=== PATIENT | male | born 1985 | race Caucasian/White ===

== ENCOUNTER 2020-09-07 03:35 | Emergency (ER) | payer MEDICAID, SELFPAY ==
[2020-09-07 03:40] VITALS: BP 135/73; PULSE 87; RESP 18; TEMP 36.4; O2SAT 99
--- NOTE | 2020-09-07 03:45 | ED.GENADUL_ITS ---
Discharge Plan Disposition Patient Disposition: HOME Condition: Good Discharge Details Clinical Impression: Dental caries Primary Care Provider: None,None ED Provider: Mook Cifuentes Home Meds and New Rx's Prescriptions: New penicillin V potassium 500 mg tablet 500 mg PO QID 10 Days Qty: 40 RF: 0 Continued methadone 5 mg/5 mL Solution 70 mg PO DAILY RF: 0 Discharge Instructions Instructions: Dental Caries (ED) Additional Instructions: At this time you have a mild dental infection in your tooth. Please take the an tibiotic as directed. Please continue to take Tylenol and ibuprofen. You can take 1000 mg of Tylenol every 6 hours and 800 mg of ibuprofen every 6 hours. These are the maximum doses. Please use the dental sheet follow-up closely with a dentist. If you notice any worsening of your symptoms, or any new symptoms such as vomiting, diarrhea, fever, chills, shortness of breath, chest pain, numbness, weakness, or fainting , please return immediately to the emergency department for reevaluation. Please follow up with your primary care provider as soon as possible for reassessment and reevaluation. As always, it was a pleasure participating in your medical care today. Medical Decision Making Pleasant 35-year-old male presents for left upper dental pain. Patient states that for the last few days he has had mild pain in the left upper front tooth, yesterday he poked it with a needle and got a notable amount of pus out of the area just superior to the tooth. However this evening the pain still continues to be felt mild swelling in his face. He came to the ER for further evaluation. He denies any other pain aside for pain in the tooth. He denies any fever or chills. No other complaints at this time. No difficulty swallowing or controlling secretions. He has not followed up with a dentist yet. Exam demonstrates mild swelling in the left upper face, no fluctuance of periapical space over the notable dental carry in the left upper teeth. No evidence of airway compromise whatsoever or Jamie's angina. No evidence of abscess that can be drained. Patient declined dental block, he also declined tetanus shot. Will give penicillin, a prescription for home and 4 pills here, and a dental sheet for close dental follow-up. Recommend continued Tylenol and Motrin. Discussed red flags which to return. I have extensively reviewed the treatment plan and discharge instructions with the patient. I have addressed all patient concerns at this time. The patient was made aware of what symptoms to monitor for that would warrant a return to the emergency department. Discussed the plan with the patient, they demonstrate verbal understanding and agreement with our assessment and plan at this time. The documentation in this chart was dictated using [employer] dictation software. Please excuse any dictation errors. HPI General Date/Time Provider Initiated Documentation: 09/07/20 03:38 . HPI Narrative: Ple asant 35-year-old male presents for left upper dental pain. Patient states that for the last few days he has had mild pain in the left upper front tooth, yesterday he poked it with a needle and got a notable amount of pus out of the area just superior to the tooth. However this evening the pain still continues to be felt mild swelling in his face. He came to the ER for further evaluation. He denies any other pain aside for pain in the tooth. He denies any fever or chills. No other complaints at this time. No difficulty swallowing or controlling secretions. He has not followed up with a dentist yet. Related Data Home Medications Medication Instructions Recorded Confirmed methadone 70 mg PO DAILY 09/07/20 09/07/20 penicillin V potassium 500 mg PO QID 10 Days #40 tab 09/07/20 Previous Rx's Medication Instructions Recorded penicillin V potassium 500 mg PO QID 10 Days #40 tab 09/07/20 Allergies Allergy/AdvReac Type Severity Reaction Status Date / Time No Known Allergies Allergy Unverified 09/07/20 03:46 General Stated Complaint: DentalOral MARGARET: 4 Review of Systems All systems reviewed & are unremarkable except as noted in HPI and below [facility] Social History Smoking/Tobacco Use Status: Current every day Smoking risk assessment performed?: Yes Alcohol Intake: former Drug use: Daily Substance use type: marijuana Do you feel safe at home: Yes Do you feel safe in your relationship?: Yes Exam Narrative Exam Narrative: 1.Const: Well-nourished, Well-developed, appearing stated age 2.Eyes: PERRL, no conjunctival injection, and symmetrical lids. 3.ENT: Atraumatic external nose and ears. Moist MM. Neck: Symmetric, trachea midline, No thyromegaly. Notable dental caries throughout, specifically in the left upper frontal teeth. No fluctuance in the periapical space. There is evidence of a small previous needle insertion site where he inserted the needle himself. No active drainage. Minimal bloody oozing. No evidence of Ludewig's angina, significant facial swelling, airway compromise, or other abnormality 4.CVS: Normal rate and rhythm 5.RESP: Unlabored respiratory effort. Clear to auscultation bilaterally. No wheezes rales or rhonchi 6.GI: Soft, Nontender/Nondistended, No hepatosplenomegaly. No guarding or rebound. 7.MSK: Normocephalic/Atraumatic, Extremities w/o deformity or ttp No cyanosis or clubbing, Normal movement of all extremities 8.Skin: Warm, Dry. No rashes or lesions. 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 Sensation grossly intact, no focal neurologic deficits. 10.Psych: (AAO) x3. Appropriate mood and affect Course Vital Signs Vital signs: Vital Signs Temperature 36.4 C L 09/07/20 03:40 Pulse 87 09/07/20 03:40 Respiratory Rate 18 09/07/20 03:40 Blood Pressure 135/73 09/07/20 03:40 Pulse Oximetry 99 09/07/20 03:40 Temperature 36.4 C L 09/07/20 03:40 Temperature Source Skin 09/07/20 03:40 Pulse 87 09/07/20 03:40 Respiratory Rate 18 09/07/20 03:40 Blood Pressure 135/73 09/07/20 03:40 Blood Pressure Position Sitting 09/07/20 03:40 Pulse Oximetry 99 09/07/20 03:40 Oxygen Delivery Method Room Air 09/07/20 03:40 Oxygen Flow Rate 0 09/07/20 03:40 Pain Level 2 09/07/20 03:40
[2020-09-07] MEDS: Penicillin V POTASSIUM 500 MG TAB, 4 TABS/BTL PO (03:53)
== END 2020-09-07 03:55 | disposition home or self-care (01) ==
PROVIDERS: Emergency Provider Student in an Organized Health Care Education/Training Program
DX: R68.84 Jaw pain (principal); R22.0 Localized swelling, mass and lump, head; K04.7 Periapical abscess without sinus
CPT/HCPCS: 99283

== ENCOUNTER 2021-09-29 09:00 | Emergency (ER) | payer MEDICAID, SELFPAY ==
[2021-09-29] VITALS (13 sets, daily range): BP systolic 115–133; BP diastolic 81–89; PULSE 57–97; RESP 16; TEMP 37.1; O2SAT 97–100
--- NOTE | 2021-09-29 09:15 | DI.CT_ITS ---
Exam(s) CT ABDOMEN PELVIS W EXAM: CT ABDOMEN PELVIS W CLINICAL HISTORY: RLQ pain TECHNIQUE: Imaging Protocol: Axial computed tomography images with coronal and sagittal reformatted images were created and reviewed CONTRAST MATERIAL: Intravenous: Omnipaque 350 Contrast volume:100 mL Oral: No COMPARISON: No exams were available for comparison FINDINGS: ABDOMEN: Lung Bases: Normal where visualized. Liver: Normal density. No measurable mass. Portal, Superior Mesenteric, and Splenic Veins: Unremarkable. Gallbladder and Biliary Tract: No radiodense calculus or dilation. Pancreas: Normal density, no abnormal calcifications or inflammatory process. Spleen: Normal. Adrenals: No masses seen. Kidneys: Normal size, contour and axis. No radiodense stones or obstructive uropathy. No masses seen. Abdominal Aorta: Abdominal portion non-dilated. Bowel: No obstruction or bowel wall thickening. Appendix is unremarkable. Peritoneal Cavity: No ascites, collection or mesenteric inflammatory response. No free air. Lymph Nodes: Within normal limits. Bones: Within normal limits for the patient's age. Soft Tissues: Unremarkable. PELVIS: Bladder: Symmetric distention, no gross wall thickening. Reproductive Organs: Unremarkable as visualized. Lymph Nodes: Within normal limits. Bones: Within normal limits for the patient's age. IMPRESSION: 1. No acute abdominal or pelvic process. 2. Results of this exam have been verbally communicated with provider. RADIATION DOSE DELIVERED: 642.28mGy.cm Total DLP DATA REPOSITORY: All CT scans at this facility are submitted to the National Radiology Data Registry (NRDR) Dose Index Registry (DIR) with the [employer] (ACR). RADIATION OPTIMIZATION: All CT scans at this facility use at least one of these dose optimization te chniques: automated exposure control; mA and/or kV adjustment per patient size (includes targeted exa ms where dose is matched to clinical indication); or iterative reconstruction.
[2021-09-29 09:25] LABS: Bilirubin Negative (Negative); Blood Negative (Negative); Clarity Clear (Clear); Glucose Negative (Negative); Ketones Negative (Negative); Leukocyte Esterase Negative (Negative); Nitrite Negative (Negative); Specific Gravity >= 1.030 (1.005-1.025); Urobilinogen 0.2 EU/dL (Up TO 0.2); pH 6.5 (5-8)
--- NOTE | 2021-09-29 09:26 | W.ED.GENAD ---
Discharge Plan Disposition Patient Disposition: HOME Condition: Stable Discharge Details Clinical Impression: Abdominal pain Primary Care Provider: None,None ED Provider: Shanelle Del Valle Home Meds and New Rx's Prescriptions: No Action No Known Home Meds 0RF Discharge Instructions Instructions: Abdominal Pain (ED) Additional Instructions: Please contact your primary care physician to arrange follow-up. Care management will be helping to arrange primary care follow-up. Please follow-up with a therapist. Return to the ER immediately for any worsening or new concerning symptoms. Referrals: [facility] [Outside] Discharge Data Discharge Date/Time-TO BE ENTERED AT DEPARTURE: 09/29/21 15:26 Medical Decision Making -- Patient seen, examined, and discussed with SANDIE Del Valle. I agree with treatment plan as discussed/documented. Consider acute surgical process including acute appendicitis. Plan for CT and reassessment. RS Pt appears well, no current testicular discomfort reported ct abd/pelvis negative for acute abnormality per radiologist interpretation labs including urinalysis neg for acute abnormality referred for pcp follow-up care management involved to establish care pt calm and comfortable in appearance at time of dc home return precautions discussed and pt expressed understanding Medical Records Medical records reviewed: Yes I reviewed the patient's medical records. Lab Data Lab results reviewed: Yes I reviewed the patient's lab results. HPI General Date/Time Provider Initiated Documentation: 09/29/21 09:14. HPI Narrative: This 36-year-old male presents with report of abdominal pain. Pain is been present for 3 days. States that he had an increase gassiness and nausea with light-colored stools. He denies any fever or chills. He denies pain or shortness of breath. He denies known exacerbating or alleviating factors. He did recently discontinue opiate drug use. He also was on methadone for several weeks and discontinued use with methadone 2 weeks ago. He denies any fever or chills. He denies history of similar symptoms in the past. He denies any urinary complaints but does state occasionally repeat radiates into his urethra. He denies any skin discoloration or new rashes or lesions. Related Data Home Medications Medication Instructions Recorded Confirmed Unknown [No Known Home Meds] 09/29/21 09/29/21 Allergies Allergy/AdvReac Type Severity Reaction Status Date / Time No Known Allergies Allergy Unverified 09/29/21 09:14 General Stated Complaint: Abd Prob MARGARET: 3 Review of Systems All systems reviewed & are unremarkable except as noted in HPI and below PFSH All Active Problems (Updated 09/29/21 @ 11:13 by Steven Patel MD) Dental caries (Acute) Abdominal pain (Acute) Social History Smoking/Tobacco Use Status: Current every day Smoking risk assessment performed?: Yes Alcohol Intake: former Drug use: Daily Substance use type: marijuana Details: fentayl, heroin, cocaine-smoked. Do you feel safe at home: Yes Do you feel safe in your relationship?: Yes Exam Const General: comfortable and no acute distress HENMT Mouth: oral mucosae normal Eyes Sclera: sclerae normal Resp Effort & Inspection: normal respiratory effort Cardio Rate: regular rate GI Inspection: normal to inspection Palpation: tender Other: RLQ tenderness, no rebound or guarding Skin General skin exam: no rashes or lesions noted Neuro General: patient alert and patient oriented x3 Extrem General: normal to inspection Course Vital Signs Vital signs: Vital Signs Temperature 37.1 C 09/29/21 09:06 Pulse 97 H 09/29/21 09:06 Respiratory Rate 16 09/29/21 09:06 Blood Pressure 133/89 09/29/21 09:06 Pulse Oximetry 99 09/29/21 09:06 Temperature 37.1 C 09/29/21 09:06 Temperature Source Skin 09/29/21 09:06 Pulse 97 H 09/29/21 09:06 Respiratory Rate 16 09/29/21 09:06 Respiratory Effort 09/29/21 09:06 Blood Pressure 133/89 09/29/21 09:06 Blood Pressure Position Sitting 09/29/21 09:06 Pulse Oximetry 99 09/29/21 09:06 Oxygen Delivery Method Room Air 09/29/21 09:06 Oxygen Flow Rate 0 09/29/21 09:06 Pain Level 5 09/29/21 09:06
[2021-09-29 09:50] LABS: Abs Immature Grans 0.01 10^3/uL (0.0-0.06); Absolute Basophil Count 0.07 10^3/uL (0.0-0.2); Absolute Lymphocyte Count 2.75 10^3/uL (1.2-3.4); Absolute Monocyte Count 0.62 10^3/uL (0.1-0.8); Absolute Neutrophil Count 3.34 10^3/uL (1.2-6.7); Eosinophils % 1.5; HCT 50.7 % (40.0-50.0); HGB 16.4 g/dL (13.5-17.5); Immature Grans % 0.1; Lymphocytes % 39.9; MCH 26.7 pg (27.0-33.0); MCHC 32.3 % (32.0-36.0); MCV 82.6 fL (80-95); Neutrophils % 48.5; Nucleated RBC 0 %; Platelet Count 212 10^3/uL (130-400); RDW 13.6 % (11.8-14.1); RDW-SD 40.6 fL; WBC 6.89 10^3/uL (4.4-10.8)
[2021-09-29 09:52] LABS: RBC 6.14 10^6/uL (4.36-5.78)
[2021-09-29] MEDS: Omnipaque 350 MG/ML 100 ML BTL IJ (09:55)
[2021-09-29 10:04] LABS: ALT 20 U/L (16-63); AST 13 U/L (15-37); Albumin 4.1 g/dL (3.4-5.0); Alkaline Phosphatase 81 U/L (46-116); Anion Gap 4.9 mmol/L (3-11); BUN 14 mg/dL (7-18); Bilirubin, Total 0.4 mg/dL (0.2-1.0); CO2 30.1 mmol/L (21.0-32.0); CREATININE 0.9 mg/dL (0.70-1.30); Calcium 8.9 mg/dL (8.5-10.1); Chloride 105 mmol/L (98-107); Glucose 92 mg/dL (74-106); Lipase 123 U/L (73-393); Magnesium 2.3 mg/dL (1.8-2.4); Sodium 140 mmol/L (136-145); Total Protein 7.7 g/dL (6.4-8.2)
--- NOTE | 2021-09-29 12:48 | PDOC.ERCMPRO ---
- If Service Date Differs Date of service: 09/29/21 Time of Service: 12:48 Care Management Progress Note Wesley presents in the ED for abdominal pain. At the request of ED provider, SB meets with Wesley to offer supports. Wesley reports he formerly received services through [facility] but was able to successfully wean himself off of Methadone. He currently has few community supports and states he could use a therapist to talk to. CM provides him with a list of community therapists. We discuss the [facility] but Wesley is not interested in meeting with a Wellness Nurse Rn at this time. He does, however, accept contact information for the [facility]. He is also agreeable to SB coordinating a referral to Edd Henao MD, of [facility], on-call provider, to help him establish care with a PCP. Lastly, Wesley is provided CM's contact information and instructed to call if he has difficulty finding a therapist or needs any other assistance.
[2021-09-30 15:16] LABS: Chlamydia Result Negative (Negative); GC Result Negative (Negative)
== END 2021-09-29 15:26 | disposition home or self-care (01) ==
PROVIDERS: Emergency Provider Physician Assistant
DX: R10.31 Right lower quadrant pain (principal); R14.1 Gas pain; R11.0 Nausea
CPT/HCPCS: 80053; 83690; 87491; 87591; 99285; 74177; 81003; 83735; 85025; 99283; J3490

== ENCOUNTER 2022-04-01 13:55 | Emergency (ER) | payer MEDICAID, SELFPAY ==
[2022-04-01 14:00] VITALS: BP 133/85; PULSE 102; RESP 14; TEMP 36.8; O2SAT 95
--- NOTE | 2022-04-01 14:15 | RT.EKG_ITS ---
APPROVED REPORT Exam: Resting ECG Reason for Exam: chest pain Patient Location: E HR:90 bpm ECG Measurements Heart Rate 90 AXIS ID 145 P 82 QRSd 91 QRS 72 QT 341 T 47 QTc 417 Conclusion Sinus rhythm...normal P axis, V-rate 60- 99 ST elev, probable normal early repol pattern...ST elevation, age<55
--- NOTE | 2022-04-01 14:15 | DI.RAD_ITS ---
Exam(s) XR CHEST 2V PA LATERAL EXAM: XR CHEST 2V PA LATERAL CLINICAL HISTORY: chest pain TECHNIQUE: 2D digital imaging was performed. COMPARISON: No exams were available for comparison FINDINGS: The heart is not enlarged. The lungs are clear and well expanded. No pleural effusion seen. Mediastin al contours appear intact. IMPRESSION: Normal chest. RADIATION DOSE DELIVERED: Total DLP
--- NOTE | 2022-04-01 15:07 | W.ED.GENAD ---
Discharge Plan Disposition Patient Disposition: HOME Condition: Stable Discharge Details Clinical Impression: Cervical radiculopathy, Chest pain Primary Care Provider: [facility] Provider: Shanelle Del Valle Home Meds and New Rx's Prescriptions: New prednisone 20 mg tablet 40 mg PO DAILY 5 Days Qty: 10 0RF Discharge Instructions Instructions: Chest Pain (ED), Cervical Radiculopathy (ED) Additional Instructions: Take the prednisone as prescribed Follow-up with primary care physician for reassessment Recommend cutting down on the amount of milk and eating considering discontinuing tobacco and marijuana as it is likely contributing to your shortness of breath Refrain from heavy lifting, recommend outpatient MRI should you have persistent symptoms at the discretion of your providers Discharge Data Discharge Date/Time-TO BE ENTERED AT DEPARTURE: 04/01/22 15:41 HPI General Date/Time Provider Initiated Documentation: 04/01/22 14:11. HPI Narrative: This 36-year-old gentleman presents with some left arm numbness and paresthesias. States that he has done heavy lifting for work in the past. States he also has some pain in his posterior lower neck. Denies any strength change to this area. Denies chest discomfort. Does state that in the past several days he has had some intermittent chest discomfort predominantly after vaping marijuana. This has not occurred for the past 48 hours. Denies any history of hypertension or hyperlipidemia. Denies recent flights, surgeries, long drives. Denies exogenous hormones. Denies calf pain or swelling. Denies weakness to the affected extremity or any lower extremity involvement. Related Data Home Medications Medication Instructions Recorded Confirmed prednisone 20 mg tablet 40 mg PO DAILY 5 days #10 tabs 04/01/22 Previous Rx's Medication Instructions Recorded prednisone 20 mg tablet 40 mg PO DAILY 5 days #10 tabs 04/01/22 Allergies Allergy/AdvReac Type Severity Reaction Status Date / Time No Known Allergies Allergy Unverified 04/01/22 14:07 General Stated Complaint: GenMedical MARGARET: 3 Review of Systems All systems reviewed & are unremarkable except as noted in HPI and below PFSH All Active Problems (Updated 04/01/22 @ 15:12 by SANDIE Demarco) Dental caries (Acute) Cervical radiculopathy (Acute) Chest pain (Acute) Social History Smoking/Tobacco Use Status: Current every day Tobacco Type: e-cigarettes Smoking risk assessment performed?: Yes Alcohol Intake: current Alcohol Intake frequency: holidays/special occasions only Alcohol type: wine Drug use: Daily Substance use type: marijuana Details: past fentayl, heroin, cocaine-smoked Do you feel safe at home: Yes Do you feel safe in your relationship?: Yes Exam Const General: cooperative, comfortable and no acute distress Neck Neck images: 1. Tenderness with palpation, paraspinal Chest Chest: normal inspection of the chest Resp Effort & Inspection: normal respiratory effort Auscultation: clear to auscultation bilaterally Cardio Rate: regular rate Rhythm: regular rhythm Other: Distal pulses intact GI Inspection: normal to inspection Skin General skin exam: no rashes or lesions noted Neuro General: patient alert and patient oriented x3 Other: Mildly diminished sensation to left upper extremity, strength and DTRs intact to bilateral upper and lower extremities, no weakness appreciated Extrem Other: distal pulses intact Course Vital Signs Vital signs: Vital Signs Temperature 36.8 C 04/01/22 14:00 Pulse 102 H 04/01/22 14:00 Respiratory Rate 14 04/01/22 14:00 Blood Pressure 133/85 04/01/22 14:00 Pulse Oximetry 95 04/01/22 14:00 Temperature 36.8 C 04/01/22 14:00 Temperature Source Skin 04/01/22 14:00 Pulse 102 H 04/01/22 14:00 Respiratory Rate 14 04/01/22 14:00 Respiratory Effort 04/01/22 14:08 Blood Pressure 133/85 04/01/22 14:00 Blood Pressure Position Sitting 04/01/22 14:00 Pulse Oximetry 95 04/01/22 14:00 Oxygen Delivery Method Room Air 04/01/22 14:00 Oxygen Flow Rate 0 04/01/22 14:00 Pain Level 6 04/01/22 14:00 PAWSS Have you Been Recently Intoxicated or Drunk Within the Last 30 days?: Yes Have you Ever Experienced Previous Episodes of Alcohol Withdrawal?: No Have you ever Experienced Withdrawal Seizures?: No Have you ever Experienced Delirium Tremens(DT)s?: Yes Have you ever Experienced Blackouts?: No Have you ever Combined Alcohol with other Downers within the last 90 days?: No Have you ever Combined Alcohol with any other Substance of Abuse during the last 90 days?: No Positive Blood Alcohol level on Presentation? [PCS.BAL]: No Evidence of Increased Autonomic Activity (i.e. HR>120, tremor, sweating, agitation, nausea)?: No Result: 2
[2022-04-01 15:08] VITALS: BP 121/78; PULSE 90; O2SAT 97
--- NOTE | 2022-04-01 15:11 | NUR.NOTE ---
Nursing Note: Referral given to Care Management for needs PCP; establish care; routine follow up.
--- NOTE | 2022-04-01 15:45 | DI.VRAD_ITS ---
PROCEDURE INFORMATION: Exam: XR Chest Exam date and time: 04/01/2022 3:00 PM Age: 36 years old Clinical indication: Other: Unspecified; Patient HX: Chest pain TECHNIQUE: Imaging protocol: Radiologic exam of the chest. Views: 2 views. COMPARISON: CT ABDOMEN PELVIS W 09/29/2021 9:52 AM FINDINGS: Lungs: Unremarkable. No consolidation. Pleural spaces: No pleural effusion. No pneumothorax. Heart/Mediastinum: Unremarkable. No cardiomegaly. Bones/joints: No acute bone abnormality. IMPRESSION: No acute findings. Dictated and Authenticated by: Rodrigue Vee MD. Ordering:JULIO Timmons MD
--- NOTE | 2022-04-04 09:31 | CMACTNOTE_ITS ---
- If Service Date Differs Date of service: 04/04/22 Time of Service: 09:31 Care Management Activity Note Wesley is seen in the ED for chest pain and cervical radiculopathy. At the request of ED provider, SB coordinates a referral to Sugey Pierre MD, of [facility], on-call provider, to assist Wesley in obtaining a follow up appointment and in establishing care with a PCP. He has Medicaid for insurance.
== END 2022-04-01 15:41 | disposition home or self-care (01) ==
PROVIDERS: Emergency Provider Physician Assistant
DX: M54.12 Radiculopathy, cervical region (principal); R07.9 Chest pain, unspecified; F17.290 Nicotine dependence, other tobacco product, uncomplicated
CPT/HCPCS: 93005; 99284; 71046; 93010

== ENCOUNTER 2022-08-11 20:08 | Emergency (ER) | payer MEDICAID, SELFPAY ==
[2022-08-11 20:12] VITALS: BP 135/95; PULSE 76; RESP 16; TEMP 36.6; O2SAT 99
--- NOTE | 2022-08-11 20:30 | ED.GENADUL_ITS ---
Discharge Plan Disposition Patient Disposition: Home Condition: Stable Discharge Details Clinical Impression: Foreign body of upper arm Primary Care Provider: None,None ED Provider: Shanelle Del Valle Home Meds and New Rx's Prescriptions: No Action No Known Home Meds Medical Decision Making Handcuffs removed after unlocking moore with forceps No foreign body remains Discharged home in stable condition with stable vitals, neurologically intact HPI General Date/Time Provider Initiated Documentation: 08/11/22 20:13 . HPI Narrative: This 36-year-old male presents with report of accidentally locking handcuffs in place. Denies any additional complaints. Related Data Home Medications Medication Instructions Recorded Confirmed Unknown [No Known Home Meds] 08/11/22 08/11/22 Allergies Allergy/AdvReac Type Severity Reaction Status Date / Time No Known Allergies Allergy Unverified 08/11/22 20:16 General Stated Complaint: GenMedical MARGARET: 4 PFSH All Active Problems (Updated 08/11/22 @ 20:28 by SANDIE Demarco) Dental caries (Acute) Foreign body of upper arm (Acute) Social History Smoking/Tobacco Use Status: Current every day Tobacco Type: e-cigarettes Smoking risk assessment performed?: Yes Alcohol Intake: current Alcohol Intake frequency: a few times a week Alcohol type: wine Drug use: Daily Substance use type: marijuana Details: past fentayl, heroin, cocaine-smoked Do you feel safe at home: Yes Do you feel safe in your relationship?: Yes Exam Narrative Exam Narrative: Site of handcuffs noted on the left arm, neurovascularly intact, no open wounds Course Vital Signs Vital signs: Vital Signs Temperature 36.6 C 08/11/22 20:12 Pulse 76 08/11/22 20:12 Respiratory Rate 16 08/11/22 20:12 Blood Pressure 135/95 H 08/11/22 20:12 Pulse Oximetry 99 08/11/22 20:12 Temperature 36.6 C 08/11/22 20:12 Temperature Source Temporal Artery Scan 08/11/22 20:12 Pulse 76 08/11/22 20:12 Respiratory Rate 16 08/11/22 20:12 Respiratory Effort 08/11/22 20:12 Blood Pressure 135/95 H 08/11/22 20:12 Blood Pressure Position Sitting 08/11/22 20:12 Pulse Oximetry 99 08/11/22 20:12 Oxygen Delivery Method Room Air 08/11/22 20:12 Oxygen Flow Rate 0 08/11/22 20:12 Pain Level 2 08/11/22 20:12 PAWSS Have you Been Recently Intoxicated or Drunk Within the Last 30 days?: No Have you Ever Experienced Previous Episodes of Alcohol Withdrawal?: No Have you ever Experienced Withdrawal Seizures?: No Have you ever Experienced Delirium Tremens(DT)s?: No Have you ever undergone Alcohol Rehabilitation Treatment (i.e, inpt ot outpatient treatment programs)?: No Have you ever Experienced Blackouts?: No Have you ever Combined Alcohol with other Downers within the last 90 days?: No Have you ever Combined Alcohol with any other Substance of Abuse during the last 90 days?: No Positive Blood Alcohol level on Presentation? [PCS.BAL]: Yes Evidence of Increased Autonomic Activity (i.e. HR>120, tremor, sweating, agitation, nausea)?: No Result: 1
== END 2022-08-11 20:32 | disposition home or self-care (01) ==
PROVIDERS: Emergency Provider Physician Assistant
DX: S60.852A Superficial foreign body of left wrist, initial encounter (principal); S60.851A Superficial foreign body of right wrist, initial encounter; W49.09XA Other specified item causing external constriction, initial encounter
CPT/HCPCS: 99281; 99282

== ENCOUNTER 2024-01-31 18:12 | Emergency (ER) | payer MEDICAID, SELFPAY ==
[2024-01-31 18:17] VITALS: BP 123/85; PULSE 96; RESP 15; TEMP 36.2; O2SAT 96
[2024-01-31] MEDS: diazePAM 5 MG TAB PO (20:17)
[2024-01-31] MEDS: predniSONE 20 MG TAB 40 MG PO (20:18)
--- NOTE | 2024-02-01 19:36 | ED.GENADUL_ITS ---
Discharge Plan Disposition Patient Disposition: Home Discharge Details Clinical Impression: Lumbar strain Primary Care Provider: None,None ED Provider: Shanelle Del Valle Home Meds and New Rx's Prescriptions: New diazepam [Valium] 5 mg tablet 5 mg PO BID PRNQty: 6 0RF prednisone 20 mg tablet 40 mg PO ONCE Qty: 8 0RF Discharge Instructions Instructions: Back Muscle Strain Additional Instructions: Take prednisone as prescribed Take Valium sparingly, this medication can be addictive and do not take if you are driving within 8 hours of consuming this medication Stretching as we discussed for your back Recheck in 1 week with persistent pain return earlier should you have new or worsening complaints including changes in bowel or bladder, strength or sensation changes to extremities or should any new concerns arise, limit lifting to 5 pounds for the next week Discharge Data Discharge Date/Time-TO BE ENTERED AT DEPARTURE: 01/31/24 20:19 HPI General Date/Time Provider Initiated Documentation: 01/31/24 19:56 . HPI Narrative: This 38-year-old female presents with pain to left lower back after lifting a coffee table yesterday. He states his pain is worse with any sort of movement but not reproducible back pain. Denies any changes in bowel or bladder strength or sensation changes to extremities. Denies any groin numbness or history of illicit drug use. States the pain is worsened with movement. Denies any falls or significant trauma. Denies history of back pain in the past. Related Data Home Medications ?Medication ?Instructions ?Recorded ?Confirmed diazepam 5 mg tablet (Valium) 5 mg PO BID PRN #6 tabs 01/31/24 prednisone 20 mg tablet 40 mg (2 x 20 mg) PO ONCE #8 tabs 01/31/24 Previous Rx's ?Medication ?Instructions ?Recorded diazepam 5 mg tablet (Valium) 5 mg PO BID PRN #6 tabs 01/31/24 prednisone 20 mg tablet 40 mg (2 x 20 mg) PO ONCE #8 tabs 01/31/24 Allergies Allergy/AdvReac Type Severity Reaction Status Date / Time No Known Allergies Allergy Unverified 08/11/22 20:16 General Stated Complaint: Nk/Back Pain MARGARET: 4 Exam Narrative Exam Narrative: Alert and oriented 38-year-old male in no significant acute distress unless position changes occur, no abdominal bruit or pulsatile mass, no CVA tenderness, reproducible paraspinal lumbar tenderness, distal pulses intact, sensation intact distally, DTRs intact bilateral lower extremities, ambulatory with antalgic although steady gait, no findings consistent with cauda equina syndrome Course Vital Signs Vital signs: Vital Signs Temperature 36.2 C L 01/31/24 18:17 Pulse 96 H 01/31/24 18:17 Respiratory Rate 15 01/31/24 18:17 Blood Pressure 123/85 01/31/24 18:17 Pulse Oximetry 96 01/31/24 18:17 Temperature 36.2 C L 01/31/24 18:17 Pulse 96 H 01/31/24 18:17 Respiratory Rate 15 01/31/24 18:17 Respiratory Effort Normal 01/31/24 18:20 Blood Pressure 123/85 01/31/24 18:17 Blood Pressure Position Sitting 01/31/24 18:17 Pulse Oximetry 96 01/31/24 18:17 Oxygen Delivery Method Room Air 01/31/24 18:17 Oxygen Flow Rate 0 01/31/24 18:17 Pain Level 6 01/31/24 18:20 Medical Decision Making Alert and oriented 38-year-old male presenting with back pain after lifting injury. I see no indication for x-ray imaging at this time as there is no significant trauma. No signs of consistent with cauda equina syndrome. Patient appears to have musculoskeletal pain clinically will treat with Valium prednisone for back pain. Patient encouraged to take Tylenol additionally. Will need recheck in 1 week and with persistent symptoms imaging may be warranted at the discretion of the provider. Return precautions reviewed and patient expressed understanding Quality:SDOH Health Related Social Needs: No Data to Display PFSH All Active Problems (Updated 01/31/24 @ 20:09 by SANDIE Demarco) Lumbar strain (Acute) Dental caries (Acute) Social History Smoking/Tobacco Use Status: Current every day Tobacco Type: e-cigarettes Smoking risk assessment performed?: Yes Alcohol Intake: current Alcohol Intake frequency: a few times a week Alcohol type: wine Drug use: Daily Substance use type: marijuana Details: past fentayl, heroin, cocaine-smoked Do you feel safe at home: Yes Do you feel safe in your relationship?: Yes PAWSS Have you Been Recently Intoxicated or Drunk Within the Last 30 days?: No Have you Ever Experienced Previous Episodes of Alcohol Withdrawal?: No Have you ever Experienced Withdrawal Seizures?: No Have you ever Experienced Delirium Tremens(DT)s?: No Have you ever undergone Alcohol Rehabilitation Treatment (i.e, inpt ot outpatient treatment programs)?: No Have you ever Experienced Blackouts?: No Have you ever Combined Alcohol with other Downers within the last 90 days?: No Have you ever Combined Alcohol with any other Substance of Abuse during the last 90 days?: No Positive Blood Alcohol level on Presentation? [PCS.BAL]: No Evidence of Increased Autonomic Activity (i.e. HR>120, tremor, sweating, agitation, nausea)?: No Result: 0
== END 2024-01-31 20:19 | disposition home or self-care (01) ==
PROVIDERS: Emergency Provider Physician Assistant
DX: S39.012A Strain of muscle, fascia and tendon of lower back, initial encounter (principal); F17.290 Nicotine dependence, other tobacco product, uncomplicated; X50.0XXA Overexertion from strenuous movement or load, initial encounter; Y93.89 Activity, other specified; Y92.018 Other place in single-family (private) house as the place of occurrence of the external cause
CPT/HCPCS: 99283; J7512

== ENCOUNTER 2025-06-19 05:58 | Emergency (ER) | payer MEDICAID, SELFPAY ==
--- NOTE | 2025-06-19 06:01 | ED.GENADUL_ITS ---
Discharge Plan Discharge Details Chief Complaint: Abd Prob Primary Care Provider: Pito Kohli ED Provider: Duke Pabon [facility] General Mode of arrival: ambulatory . Date/Time Provider Initiated Documentation: 06/19/25 06:01 . Limitations to Documentation: no limitations . Information obtained by: patient and RN notes reviewed . HPI Narrative: Patient presents to ED with abdominal pain that has been present for a couple of days now. Reports having nausea and vomiting prior to the pain but no diarrhea. Everyone in the house was sick and everyone has recovered except patient. He is able to eat and drink now, but pain is worsening. Pain worse with movement and palpation, is to the right of the umbilicus. No fever. No back pain. No urinary symptoms. No previous abdominal surgery. Did not take anything for pain this morning. Related Data Allergies Allergy/AdvReac Type Severity Reaction Status Date / Time No Known Allergies Allergy Unverified 06/19/25 06:13 General MARGARET: 4 Exam Narrative Exam Narrative: Const: WDWN male in NAD. VS per triage. HEENT: NC/AT. Normal facial exam. Neck: Supple. Trachea midline. Lungs: Normal respiratory effort. Cor: RRR. Good radial pulses. GI: Soft/ND. Tender in the umbilicus and to the right. No McBurney's point tenderness. No definite umbilical hernia appreciated. Neuro: A+O x 3. Normal speech, mentation, gait. Cranial nerves II - XII grossly intact. No gross motor or sensory deficit. Medical Decision Making Patient presenting to ED with worsening abdominal pain after recovering from illness causing N/V that whole family had. Pain is in the area of the umbilicus and potential may be abdominal musculature pain versus possible umbilical hernia, less likely appendix or mesenteric adenitis. Does appear tender enough to warrant imaging especially since pain is worsening. Will check labs and urinalysis as well. IV ketorolac given for pain. Patient will be signed out to oncoming physician pending results of labs/scan. [facility] Social History Smoking/Tobacco Use Status: Current every day Tobacco Type: e-cigarettes Smoking risk assessment performed?: Yes Alcohol Intake: current Alcohol Intake frequency: a few times a week Alcohol type: wine Drug use: Daily Substance use type: marijuana Details: past fentayl, heroin, cocaine-smoked Housing: apartment Do you feel safe at home: Yes Do you feel safe in your relationship?: Yes
[2025-06-19 06:02] VITALS: BP 127/76; PULSE 86; RESP 12; TEMP 36.9; O2SAT 98
--- NOTE | 2025-06-19 06:15 | DI.CT_ITS ---
Exam(s) CT ABDOMEN PELVIS W EXAM: CT ABDOMEN PELVIS W CLINICAL HISTORY: right mid/lower abdominal pain. TECHNIQUE: Imaging Protocol: Axial computed tomography images with coronal and sagittal reformatted images were created and reviewed CONTRAST MATERIAL: Intravenous: Omnipaque 350 Contrast volume:100 ml Oral: yes no COMPARISON: CT CT ABDOMEN PELVIS W from 09/29/2021 FINDINGS: ABDOMEN and PELVIS: Lung Bases: No acute findings. Liver: Normal density. No suspicious mass. Gallbladder and biliary tract: No radiodense calculus. No wall thickening or pericholecystic fluid. No biliary dilation. Pancreas: Normal density. No abnormal calcifications or inflammatory process. No evidence of mass. Spleen: Normal. Kidneys: Normal size, contour and axis. No radiodense stones. No obstructive uropathy. No suspicious masses seen. Adrenal glands: No masses seen. Vasculature: Abdominal aorta non-dilated. Soft tissues: Unremarkable. Bladder: No gross wall thickening. No calculi.No focal mass. Bowel: No obstruction. No bowel wall thickening. Appendix normal. Peritoneal cavity: No ascites. No focal collection. No mesenteric inflammatory response. No free air. Bones: Degenerative disc changes with prominent endplate osteophytes at L2-3 and L3-4. Mild disc bulging at these levels. No visible central canal stenosis or neural foraminal narrowing. Reproductive organs: Unremarkable. Lymph nodes: No pathologically enlarged lymph nodes. IMPRESSION:: No acute abnormality in the abdomen or pelvis. The preliminary [facility] report was reviewed. RADIATION DOSE DELIVERED: 422.38mGy.cm Total DLP DATA REPOSITORY: All CT scans at this facility are submitted to the National Radiology Data Registry (NRDR) Dose Index Registry (DIR) with the [employer] (ACR). RADIATION OPTIMIZATION: All CT scans at this facility use at least one of these dose optimization techniques: automated exposure control; mA and/or kV adjustment per patient size (includes targeted exams where dose is matched to clinical indication); or iterative reconstruction.
[2025-06-19] MEDS: Normal Saline 500 ML IV (06:27)
[2025-06-19] MEDS: Ketorolac 15 MG/ML VIAL IVP (06:29)
[2025-06-19 06:41] LABS: Abs Immature Grans 0.01 10^3/uL (0.0-0.06); HCT 48.3 % (40.0-50.0); HGB 16.0 g/dL (13.5-17.5); Immature Grans % 0.2 %; MCH 27.3 pg (27.0-33.0); MCHC 33.1 % (32.0-36.0); MCV 82 fL (80-95); MPV 10.0 fL (8.0-11.0); Platelet Count 162 10^3/uL (130-400); RBC 5.86 10^6/uL (4.36-5.78); RDW 12.9 % (11.8-14.1); RDW-SD 38.6 fL; WBC 5.87 10^3/uL (4.4-10.8)
[2025-06-19] MEDS: Omnipaque 350 MG/ML 100 ML BTL IJ (07:06)
[2025-06-19] MEDS: Normal Saline - Diluent 50 ML VIAL IJ (07:07)
[2025-06-19 07:08] LABS: Lipase 32 U/L (<53)
[2025-06-19 07:10] LABS: ALT 18 U/L (10-49); AST 25 U/L (<34); Albumin 4.1 g/dL (3.2-5.0); Alkaline Phosphatase 69 U/L (46-116); Anion Gap 6.9 mmol/L (3-11); BUN 17 mg/dL (9-23); Bilirubin, Total 0.4 mg/dL (0.2-1.2); CO2 27.1 mmol/L (20.0-31.0); Calcium 8.6 mg/dL (8.3-10.6); Chloride 108 mmol/L (98-107); Glucose 93 mg/dL (74-106); Potassium 3.9 mmol/L (3.5-5.1); Sodium 142 mmol/L (136-145); Total Protein 7.0 g/dL (5.7-8.2)
[2025-06-19 08:08] LABS: Glucose Negative (Negative)
--- NOTE | 2025-06-19 09:13 | DI.[facility]_ITS ---
PROCEDURE INFORMATION: Exam: CT Abdomen And Pelvis With Contrast Exam date and time: 06/19/2025 7:02 AM Age: 39 years old Clinical indication: Other: Right mid/lower abdominal pain TECHNIQUE: Imaging protocol: Computed tomography of the abdomen and pelvis with contrast. Contrast material: 350; Contrast volume: 100 ml; Contrast route: INTRAVENOUS (IV); COMPARISON: CT ABDOMEN PELVIS W 09/29/2021 9:52 AM FINDINGS: Liver: Normal. No mass. Gallbladder and biliary ducts: Normal. No calcified stones. No ductal dilation. Pancreas: Normal. No ductal dilation. Spleen: Normal. No splenomegaly. Adrenal glands: Normal. No mass. Kidneys and ureters: Normal. No hydronephrosis. Stomach and bowel: Unremarkable. No obstruction. No mucosal thickening. Appendix: No evidence of appendicitis. Intraperitoneal space: Unremarkable. No free air. No significant fluid collection. Vasculature: Unremarkable. No abdominal aortic aneurysm. Lymph nodes: Unremarkable. No enlarged lymph nodes. Urinary bladder: Unremarkable as visualized. Reproductive: Unremarkable as visualized. Bones/joints: Unremarkable. No acute fracture. Soft tissues: Unremarkable. IMPRESSION: No acute findings. Dictated and Authenticated by: Yajaira Rahman MD. Orderin Cm Wall MD
[2025-06-19 09:17] LABS: C & S Indicated? No; RBC 0-2 HPF (0-2); WBC Negative HPF (0-5)
--- NOTE | 2025-06-19 09:17 | ED.PROG_ITS ---
Date of service: 06/19/25 Time of Service: 09:17 Medical Decision Making Plan at signout was to follow-up on CT of the abdomen and pelvis and urinalysis. CT of the abdomen pelvis was interpreted by radiology: No acute findings. Patient reassessed and resting comfortably. Urinalysis reviewed there is trace intact blood. Consider potential small renal stone not visualized on CT imaging. Results were discussed with the patient. Plan for discharge with close outpatient follow-up for reassessment. Usual and customary discharge instructions were reviewed including return to ED immediately for any worsening or new concerning symptoms. Lab Data Lab results reviewed: Yes I reviewed the patient's lab results. Labs: Laboratory Tests Range/Units 06/19/25 06/19/25 06:32 07:57 WBC (4.4-10.8) 10^3/uL 5.87 RBC (4.36-5.78) 10^6/uL 5.86 H Hgb (13.5-17.5) g/dL 16.0 Hct (40.0-50.0) % 48.3 MCV (80-95) fL 82 MCH (27.0-33.0) pg 27.3 MCHC (32.0-36.0) % 33.1 RDW (11.8-14.1) % 12.9 Plt Count (130-400) 10^3/uL 162 MPV (8.0-11.0) fL 10.0 Immature Gran % % 0.2 Neutrophils % % 55.5 Lymphocytes % % 23.2 Monocytes % % 17.7 Eosinophils % % 2.4 Basophils % % 1.0 Nucleated RBC % (0.0-0.3) % 0.0 Absolute Neutrophils (1.2-6.7) 10^3/uL 3.26 Absolute Lymphocytes (1.2-3.4) 10^3/uL 1.36 Absolute Monocytes (0.1-0.8) 10^3/uL 1.04 H Absolute Eosinophils (0.0-0.7) 10^3/uL 0.14 Absolute Basophils (0.0-0.2) 10^3/uL 0.06 Sodium (136-145) mmol/L 142 Potassium (3.5-5.1) mmol/L 3.9 Chloride (98-107) mmol/L 108 H Carbon Dioxide (20.0-31.0) mmol/L 27.1 Anion Gap (3-11) mmol/L 6.9 BUN (9-23) mg/dL 17 Creatinine (0.73-1.18) mg/dL 0.89 Est GFR (CKD-EPI 2020) (mL/min/1.73m2) 95.75 Glucose (74-106) mg/dL 93 Calcium (8.3-10.6) mg/dL 8.6 Total Bilirubin (0.2-1.2) mg/dL 0.4 AST (<34) U/L 25 ALT (10-49) U/L 18 Alkaline Phosphatase (46-116) U/L 69 Total Protein (5.7-8.2) g/dL 7.0 Albumin (3.2-5.0) g/dL 4.1 Lipase (<53) U/L 32 Urine Color (Yellow) Yellow Urine Clarity (Clear) Sl Cloudy Urine pH (5-8) 6.0 Ur Specific [place] (1.005-1.025) <= 1.005 Urine Protein (Neg-Trace) mg/dL 30 H Urine Ketones (Negative) mg/dL Negative Urine Blood (Negative) Trace-intact H Urine Nitrite (Negative) Negative Urine Bilirubin (Negative) Negative Urine Urobilinogen (Up to 0.2) mg/dL 2.0 H Ur Leukocyte Esterase (Negative) Negative Urine RBC (0-2) HPF 0-2 Urine WBC (0-5) HPF Negative Ur Epithelial Cells (Negative) HPF Few Urine Crystals (Negative) HPF Negative Urine Bacteria (Negative) HPF Negative Urine Casts (Negative) LPF Negative Urine Mucus (Negative) Negative Ur Culture Indicated? No Urine Glucose (Negative) mg/dL Negative Discharge Plan Disposition Patient Disposition: Home Condition: Stable Discharge Details Clinical Impression: Abdominal pain, Hematuria Primary Care Provider: Pito Kohli ED Provider: Steven Patel Home Meds and New Rx's Prescriptions: No Action No Known Home Meds Discharge Instructions Instructions: Abdominal Pain, Adult ED, Blood in Urine (Hematuria), Adult ED Additional Instructions: CT imaging of your abdomen and pelvis performed today did not reveal any acute abnormalities. Diagnostic lab testing performed today reveals a trace amount of blood in your urine. Please be sure to discuss this with your primary care physician. Additional outpatient diagnostic testing may be necessary should this persist. Please follow-up with your primary care physician. Return to the emergency department immediately for any worsening or new concerning symptoms. Stand Alone Forms: Portal Information Referrals: Pito Kohli [Primary Care Provider, Medicine] Discharge Data Discharge Date/Time-TO BE ENTERED AT DEPARTURE: 06/19/25 09:35
[2025-06-19 09:31] VITALS: BP 122/86; PULSE 69; RESP 16; O2SAT 97
== END 2025-06-19 09:35 | disposition home or self-care (01) ==
PROVIDERS: Emergency Medicine; Emergency Provider Student in an Organized Health Care Education/Training Program; PCP Physician Assistant
DX: R31.29 Other microscopic hematuria; R11.2 Nausea with vomiting, unspecified; R10.33 Periumbilical pain
CPT/HCPCS: 00123; 80053; 83690; 96361; 96374; 99285; 74177; 81003; 81015; 85025; 99284; J1885; J3490